=== PATIENT | male | born 1970 ===

== ENCOUNTER 2024-12-30 20:12 | Observation (INO) | payer MEDICAID ==
[~2024-12-30] VITALS: Ht 180.3 cm; Wt 81.0 kg
[2024-12-30 21:11] LABS: BASOPHILS ABSOLUTE AUTO 0.06 K/mm3 (0.00-0.23); BASOPHILS PERCENT AUTO 1 % (0-2); EOSINOPHILS ABSOLUTE AUTO 0.10 K/mm3 (0.00-0.68); EOSINOPHILS PERCENT AUTO 1 % (0-6); Hematocrit 40.2 % (37.0-53.0); Hemoglobin 14.8 g/dL (13.5-17.5); IMMATURE GRAN ABSOLUTE AUTO 0.03 K/mm3 (0.00-0.10); IMMATURE GRAN PERCENT AUTO 0 % (0-1); LYMPHOCYTES ABSOLUTE AUTO 1.97 K/mm3 (0.84-5.20); LYMPHOCYTES PERCENT AUTO 28 % (21-46); MONOCYTES ABSOLUTE AUTO 0.30 K/mm3 (0.16-1.47); MONOCYTES PERCENT AUTO 4 % (4-13); Mean Corpuscular HGB Conc 36.8 g/dL (31.5-36.5); Mean Corpuscular Volume 81 fL (80-100); NEUTROPHILS ABSOLUTE AUTO 4.67 K/mm3 (1.96-9.15); NEUTROPHILS PERCENT AUTO 66 % (41-73); NRBC ABSOLUTE 0.00 K/mm3 (0.00-0.02); NRBC Auto 0.0 /100 WBC (0.0-0.2); RDW Coefficient Variation 12.6 % (11.7-14.2); RDW Standard Deviation 36.1 fL (35.1-46.3)
[2024-12-30 21:16] LABS: Alanine Aminotransfer (ALT/SGP 19.0 U/L (12-78); Albumin, Blood 3.7 g/dL (3.4-5.0); Albumin/Globulin Ratio 1.0 (0.8-1.8); Anion Gap 10.0 mmol/L (3-11); Aspartate Aminotrans (AST/SGOT 14.0 U/L (12-37); Bilirubin, Total 0.5 mg/dL (0.1-1.0); Blood Urea Nitrogen 15.0 mg/dL (8-24); CO2, Blood 24.0 mmol/L (21-32); Calcium, Blood 9.2 mg/dL (8.5-10.1); Chloride, Blood 104.0 mmol/L (98-108); Creatinine, Blood 0.91 mg/dL (0.60-1.20); Globulin, Blood 3.7 g/dL (2.2-4.0); Glucose, Blood 127.0 mg/dL (70-99); Potassium, Blood 3.4 mmol/L (3.5-5.5); Sodium, Blood 135.0 mmol/L (136-145); Total Protein, Blood 7.4 g/dL (6.4-8.2)
[2024-12-30 21:23] LABS: Platelet Count 309 K/mm3 (150-400)
[2024-12-30 22:19] LABS: Source, Urine Voided
[2024-12-30 22:23] LABS: Color, Urine Amber (P-Yellow); Glucose Qualitative, Urine Neg (Neg); Ketones, Urine 1+ (Neg); Leukocyte Esterase, Urine 1+ (Neg); Protein, Urine 3+ (Neg); Specific Gravity, Urine 1.025 (1.003-1.022); Urobilinogen, Urine 2+ (Normal)
[2024-12-30 22:30] LABS: Bilirubin, Urine 1+ (Neg)
[2024-12-30 22:32] LABS: White Blood Cells, Urine 0-2 /hpf (0-5)
[2024-12-30 22:49] LABS: Magnesium, Blood 2.0 mg/dL (1.6-2.4)
[2024-12-30] MEDS ORDERED: Morphine Sulfate 4 MG/1 ML Injection IV PRN (22:55)
[2024-12-30] MEDS ORDERED: CefOXitin Sodium 2,000 MG in NS 100 ML IV ONE (22:55)
[2024-12-30] MEDS ORDERED: FentaNYL Citrate 50 MCG/ML 2 ML Injection IV PRN (23:10)
[2024-12-30] MEDS ORDERED: HydrALAZINE HCl 20 MG / ML 1ML Vial IV PRN (23:15)
[2024-12-30] MEDS ORDERED: NS 1,000 ML IV SCH (23:15)
[2024-12-30] MEDS ORDERED: Ondansetron HCl 2 MG / ML 2ML Vial IV PRN (23:15)
[2024-12-30] MEDS ORDERED: HYDROmorphone HCl/Pf 1MG SYR IV PRN (23:55)
[2024-12-31] VITALS (19 sets, daily range): BP systolic 130–194; BP diastolic 72–107
[2024-12-31] MEDS ORDERED: Ampicillin Sod/Sulbactam Sod 3 GM in NS 100 ML IV SCH
--- NOTE | 2024-12-31 04:30 | NUR ---
NIGHT SUMMARY: PT ADMIT FROM ER. AOX4, IND, RA. PT NPO SINCE MIDNIGHT. NO SKIN ISSUES NOTED. NO PAIN SINCE ARRIVAL TO ROOM. FLUIDS RUNNING AND K REPLACEMENT. ABLE TO CALL WITH NEEDS, CALL LIGHT WITHIN REACH AND BED IN LOW POSITION.
[2024-12-31 05:16] LABS: BASOPHILS ABSOLUTE AUTO 0.03 K/mm3 (0.00-0.23); BASOPHILS PERCENT AUTO 0 % (0-2); EOSINOPHILS ABSOLUTE AUTO 0.08 K/mm3 (0.00-0.68); EOSINOPHILS PERCENT AUTO 1 % (0-6); Hematocrit 39.2 % (37.0-53.0); Hemoglobin 13.8 g/dL (13.5-17.5); IMMATURE GRAN ABSOLUTE AUTO 0.01 K/mm3 (0.00-0.10); IMMATURE GRAN PERCENT AUTO 0 % (0-1); LYMPHOCYTES ABSOLUTE AUTO 1.72 K/mm3 (0.84-5.20); LYMPHOCYTES PERCENT AUTO 21 % (21-46); MONOCYTES ABSOLUTE AUTO 0.39 K/mm3 (0.16-1.47); MONOCYTES PERCENT AUTO 5 % (4-13); Mean Corpuscular HGB Conc 35.2 g/dL (31.5-36.5); Mean Corpuscular Volume 83 fL (80-100); NEUTROPHILS ABSOLUTE AUTO 6.03 K/mm3 (1.96-9.15); NEUTROPHILS PERCENT AUTO 73 % (41-73); NRBC ABSOLUTE 0.00 K/mm3 (0.00-0.02); NRBC Auto 0.0 /100 WBC (0.0-0.2); Platelet Count 304 K/mm3 (150-400); RDW Coefficient Variation 12.7 % (11.7-14.2); RDW Standard Deviation 38.5 fL (35.1-46.3)
[2024-12-31 05:39] LABS: Alanine Aminotransfer (ALT/SGP 58.0 U/L (12-78); Albumin, Blood 3.7 g/dL (3.4-5.0); Albumin/Globulin Ratio 1.1 (0.8-1.8); Anion Gap 8.0 mmol/L (3-11); Aspartate Aminotrans (AST/SGOT 54.0 U/L (12-37); Bilirubin, Total 0.5 mg/dL (0.1-1.0); Blood Urea Nitrogen 13.0 mg/dL (8-24); CO2, Blood 29.0 mmol/L (21-32); Calcium, Blood 8.9 mg/dL (8.5-10.1); Chloride, Blood 105.0 mmol/L (98-108); Creatinine, Blood 0.92 mg/dL (0.60-1.20); Globulin, Blood 3.4 g/dL (2.2-4.0); Glucose, Blood 106.0 mg/dL (70-99); Potassium, Blood 3.8 mmol/L (3.5-5.5); Sodium, Blood 138.0 mmol/L (136-145); Total Protein, Blood 7.1 g/dL (6.4-8.2)
[2024-12-31] MEDS ORDERED: Sugammadex Sodium 200 MG/2ML SDV (100 MG/ML) ONE ×2 (14:08→15:34)
[2024-12-31] MEDS ORDERED: Dexamethasone Sod Phos 10 MG/ML 1ML VIAL ONE ×2 (14:08→14:13)
[2024-12-31] MEDS ORDERED: Midazolam HCl 1MG / ML 2ML Vial ONE (14:08)
[2024-12-31] MEDS ORDERED: Ondansetron HCl 2 MG / ML 2ML Vial ONE ×2 (14:08→14:13)
[2024-12-31] MEDS ORDERED: Rocuronium Bromide 10 MG/ML 5ML Injection IV ONE (14:08)
[2024-12-31] MEDS ORDERED: FentaNYL Citrate 50 MCG/ML 5 ML Injection ONE (14:08)
[2024-12-31] MEDS ORDERED: HydrALAZINE HCl 20 MG / ML 1ML Vial ONE (14:13)
[2024-12-31] MEDS ORDERED: Bupivacaine 0.5% HCl 5 MG/ML 30MLVIAL ONE (14:16)
--- NOTE | 2024-12-31 14:35 | NUR ---
History, Chart, Medications and Allergies reviewed before start of procedure. Pre-Op teaching done. Pt verbalizes understanding. Patient confirms NPO status and agrees with scheduled surgery. PT LEAVING TOP DENTURE IN UNTIL HE GETS BACK TO OR.
[2024-12-31] MEDS ORDERED: ePHEDrine Sulfate 50 MG/ML 1ML Injection ONE (15:12)
[2024-12-31] MEDS ORDERED: HydrALAZINE HCl 20 MG / ML 1ML Vial IV PRN (15:35)
[2024-12-31] MEDS ORDERED: Ketorolac Tromethamine 30mg Vial IV PRN (15:40)
[2024-12-31] MEDS ORDERED: Ketorolac Tromethamine 30mg Vial ONE (16:10)
[2024-12-31] MEDS ORDERED: Metoclopramide HCl 5MG / ML 2ML Vial ONE (16:20)
[2024-12-31] MEDS ORDERED: Metoclopramide HCl 5MG / ML 2ML Vial IV ONE (16:35)
--- NOTE | 2024-12-31 17:20 | NUR ---
ARRIVED TO UNIT [id number] AXO4 - DROWSY. VSS. FLUIDS INFUSING. LAP SITES NAVEEN CDI X4. TOLERATING ICE CHIPS CURRENTLY.
--- NOTE | 2024-12-31 18:07 | NUR ---
SUMMARY POSTOP - PT WITH VSS, TOELRATING PO INTAKE WELL. FLUIDS INFUSING. DENING NAUSEA. LAP SITES X4 CDI, NAVEEN. PT WANTING TO GO HOME. PT DOES HAVE DC ORDERS IN PLACE BUT PT EDUCATED THAT HE NEEDS TO FINISH POSTOP VITALS DAVY - PT AGREEABLE. SITTING UP IN BED CURRENTLY. HAS VOIDED AND WALKED TO BATHROOM. USING CALL LIGHT APPROPRIATELY.
[2024-12-31] MEDS ORDERED: OXYC5 PO (18:16)
--- NOTE | 2024-12-31 20:05 | NUR ---
1999- PT EDUCATED ON DISCHARGE INSTRUCTIONS. PT VERBALLY REPORTED UNDERSTANDING. PT ALSO EDUCATED ON DC INSTRUCTIONS. PT IV REMOVED AND A WHEELCHAIR PROVIDED FOR PT.
== END 2024-12-31 20:10 | disposition home or self-care (01) ==
LOC: ER 20:12 → PCU 20:13 → MEDS 20:13 → SURS 12-31 17:08
PROVIDERS: Emergency Medicine; Surgery; ADMIT Internal Medicine
PROC: 0FT44ZZ Resection of Gallbladder, Percutaneous Endoscopic Approach (ICD-10-PCS; principal; 2024-12-31 14:30)
DX: K80.10 Calculus of gallbladder with chronic cholecystitis without obstruction (principal); I10 Essential (primary) hypertension; E78.5 Hyperlipidemia, unspecified; Z79.82 Long term (current) use of aspirin; Z79.899 Other long term (current) drug therapy; Z86.73 Personal history of transient ischemic attack (TIA), and cerebral infarction without residual deficits; Z90.49 Acquired absence of other specified parts of digestive tract
CPT/HCPCS: 36415; 74177; 76705; 80053; 81001; 83690; 83735; 83880; 85025; 87086; 88304; 93005; 93010; 96365-59; 96366; 96367; 96375; 96376; 99285-25; A9270; C1729; G0378; J0295; J0360; J0694; J1100; J1171; J1885; J2250; J2270; J2405; J2704; J2765; J3010; J3480; J7030; J7050; Q9967

== ENCOUNTER 2025-01-26 17:44 | Emergency (ER) | payer MEDICAID ==
[~2025-01-26] VITALS: Ht 180.3 cm; Wt 80.7 kg
[~2025-01-26 17:44] MED LIST: OXYC5 PO
[2025-01-26 18:44] LABS: BASOPHILS ABSOLUTE AUTO 0.07 K/mm3 (0.00-0.23); BASOPHILS PERCENT AUTO 1 % (0-2); EOSINOPHILS ABSOLUTE AUTO 0.13 K/mm3 (0.00-0.68); EOSINOPHILS PERCENT AUTO 2 % (0-6); Hematocrit 40.7 % (37.0-53.0); Hemoglobin 14.5 g/dL (13.5-17.5); IMMATURE GRAN ABSOLUTE AUTO 0.01 K/mm3 (0.00-0.10); IMMATURE GRAN PERCENT AUTO 0 % (0-1); LYMPHOCYTES ABSOLUTE AUTO 1.92 K/mm3 (0.84-5.20); LYMPHOCYTES PERCENT AUTO 28 % (21-46); MONOCYTES ABSOLUTE AUTO 0.33 K/mm3 (0.16-1.47); MONOCYTES PERCENT AUTO 5 % (4-13); Mean Corpuscular HGB Conc 35.6 g/dL (31.5-36.5); Mean Corpuscular Volume 83 fL (80-100); NEUTROPHILS ABSOLUTE AUTO 4.42 K/mm3 (1.96-9.15); NEUTROPHILS PERCENT AUTO 64 % (41-73); NRBC ABSOLUTE 0.00 K/mm3 (0.00-0.02); NRBC Auto 0.0 /100 WBC (0.0-0.2); Platelet Count 323 K/mm3 (150-400); RDW Coefficient Variation 13.2 % (11.7-14.2); RDW Standard Deviation 39.7 fL (35.1-46.3)
[2025-01-26 19:18] LABS: Alanine Aminotransfer (ALT/SGP 22.0 U/L (12-78); Albumin, Blood 3.9 g/dL (3.4-5.0); Albumin/Globulin Ratio 1.1 (0.8-1.8); Anion Gap 8.0 mmol/L (3-11); Aspartate Aminotrans (AST/SGOT 9.0 U/L (12-37); Bilirubin, Total 0.6 mg/dL (0.1-1.0); Blood Urea Nitrogen 17.0 mg/dL (8-24); CO2, Blood 25.0 mmol/L (21-32); Calcium, Blood 9.3 mg/dL (8.5-10.1); Chloride, Blood 107.0 mmol/L (98-108); Creatinine, Blood 1.01 mg/dL (0.60-1.20); Globulin, Blood 3.5 g/dL (2.2-4.0); Glucose, Blood 109.0 mg/dL (70-99); Potassium, Blood 3.3 mmol/L (3.5-5.5); Sodium, Blood 137.0 mmol/L (136-145); Total Protein, Blood 7.4 g/dL (6.4-8.2)
[2025-01-26] MEDS ORDERED: Ketorolac Tromethamine 15mg Vial IV ONE (20:55)
== END 2025-01-26 21:15 | disposition home or self-care (01) ==
LOC: ER 17:44
PROVIDERS: Student in an Organized Health Care Education/Training Program
DX: G89.18 Other acute postprocedural pain (principal); R10.33 Periumbilical pain; K59.00 Constipation, unspecified; I10 Essential (primary) hypertension; Z86.73 Personal history of transient ischemic attack (TIA), and cerebral infarction without residual deficits
CPT/HCPCS: 74177; 80053; 83690; 85025; 96374-59; 99284-25; J1885; Q9967

== ENCOUNTER 2025-02-01 16:56 | Emergency (ER) | payer MEDICAID ==
[~2025-02-01] VITALS: Ht 180.3 cm; Wt 77.1 kg
[2025-02-01] MEDS ORDERED: Ketorolac Tromethamine 30mg Vial IV ONE (17:50)
[2025-02-01 18:08] LABS: BASOPHILS ABSOLUTE AUTO 0.06 K/mm3 (0.00-0.23); BASOPHILS PERCENT AUTO 1 % (0-2); EOSINOPHILS ABSOLUTE AUTO 0.06 K/mm3 (0.00-0.68); EOSINOPHILS PERCENT AUTO 1 % (0-6); Hematocrit 40.7 % (37.0-53.0); Hemoglobin 14.5 g/dL (13.5-17.5); IMMATURE GRAN ABSOLUTE AUTO 0.01 K/mm3 (0.00-0.10); IMMATURE GRAN PERCENT AUTO 0 % (0-1); LYMPHOCYTES ABSOLUTE AUTO 1.80 K/mm3 (0.84-5.20); LYMPHOCYTES PERCENT AUTO 23 % (21-46); MONOCYTES ABSOLUTE AUTO 0.34 K/mm3 (0.16-1.47); MONOCYTES PERCENT AUTO 4 % (4-13); Mean Corpuscular HGB Conc 35.6 g/dL (31.5-36.5); Mean Corpuscular Volume 81 fL (80-100); NEUTROPHILS ABSOLUTE AUTO 5.42 K/mm3 (1.96-9.15); NEUTROPHILS PERCENT AUTO 71 % (41-73); NRBC ABSOLUTE 0.00 K/mm3 (0.00-0.02); NRBC Auto 0.0 /100 WBC (0.0-0.2); Platelet Count 310 K/mm3 (150-400); RDW Coefficient Variation 12.6 % (11.7-14.2); RDW Standard Deviation 36.9 fL (35.1-46.3)
[2025-02-01 18:34] LABS: Alanine Aminotransfer (ALT/SGP 21.0 U/L (12-78); Albumin, Blood 3.9 g/dL (3.4-5.0); Albumin/Globulin Ratio 1.1 (0.8-1.8); Anion Gap 12.0 mmol/L (3-11); Aspartate Aminotrans (AST/SGOT 12.0 U/L (12-37); Bilirubin, Total 1.1 mg/dL (0.1-1.0); Blood Urea Nitrogen 19.0 mg/dL (8-24); CO2, Blood 25.0 mmol/L (21-32); Calcium, Blood 9.3 mg/dL (8.5-10.1); Chloride, Blood 101.0 mmol/L (98-108); Creatinine, Blood 0.88 mg/dL (0.60-1.20); Globulin, Blood 3.6 g/dL (2.2-4.0); Glucose, Blood 123.0 mg/dL (70-99); Potassium, Blood 3.5 mmol/L (3.5-5.5); Sodium, Blood 134.0 mmol/L (136-145); Total Protein, Blood 7.5 g/dL (6.4-8.2)
[2025-02-01] MEDS ORDERED: ACET500 PO (21:20)
[2025-02-01] MEDS ORDERED: IBUP600 PO (21:20)
[2025-02-01] MEDS ORDERED: ONDA4 PO (21:20)
== END 2025-02-01 21:31 | disposition home or self-care (01) ==
LOC: ER 16:56
PROVIDERS: Physician Assistant
DX: K29.80 Duodenitis without bleeding (principal); I10 Essential (primary) hypertension; Z90.49 Acquired absence of other specified parts of digestive tract; Z86.73 Personal history of transient ischemic attack (TIA), and cerebral infarction without residual deficits; Z59.82 Transportation insecurity
CPT/HCPCS: 74177; 80053; 85025; 96374-59; 99283-25; J1885; Q9967